=== PATIENT | male | born 1965 | race Caucasian/White ===

== ENCOUNTER 2018-12-06 22:15 | Emergency (ER) | payer OTHER ==
[2018-12-06] MEDS ORDERED: valACYclovir 500 MG Tab PO ONE (22:44)
[2018-12-06] MEDS ORDERED: predniSONE 20 MG Tab PO ONE (22:45)
--- NOTE | 2018-12-06 23:53 | EDM.PDOC ---
ED HPI GENERAL MEDICAL PROBLEM - General Chief Complaint: Neuro Symptoms/Deficits Stated Complaint: FACIAL DROOPING Time Seen by Provider: 12/06/18 22:28 Source of Information: Reports: Patient, Family History Limitations: Reports: No Limitations - History of Present Illness INITIAL COMMENTS - FREE TEXT/NARRATIVE: This is a 53-year-old male. Around 3:30 today when he was eating he noted some strange sensation in the left side of his cheek but didn't think too much of it. Apparently he went to a sports game and there was noted by his to have some left facial drooping. He was brought to the ER immediately for evaluation. He denies any weakness in his extremities and he seems to be talking fairly normal despite the slight drooping on the left side of his face. He denies any headache he denies any recent illnesses. There's been no nausea vomiting diarrhea no headaches. When he first arrived he did not appear to be in distress there was noted to be some left facial drooping and also noted that his left eye did not close completely and he was unable to wrinkle his forehead on the left side. Headache Pain Score (Numeric/FACES): 2 - Related Data Allergies Allergy/AdvReac Type Severity Reaction Status Date / Time No Known Allergies Allergy Verified 12/06/18 22:38 Home Meds: Home Meds predniSONE [Prednisone] 60 mg PO QAM #7 tablet 12/06/18 [Rx] valACYclovir [Valtrex] 1,000 mg PO TID #21 tablet 12/06/18 [Rx] ED ROS GENERAL - Review of Systems Review Of Systems: See Below Constitutional: Denies: Fever, Chills HEENT: Reports: Other (As per history of present illness) Respiratory: Reports: No Symptoms Cardiovascular: Reports: No Symptoms Endocrine: Reports: No Symptoms GI/Abdominal: Reports: No Symptoms : Reports: No Symptoms Musculoskeletal: Reports: No Symptoms Skin: Reports: No Symptoms Neurological: Reports: Other (As per history of present illness) Psychiatric: Reports: No Symptoms Hematologic/Lymphatic: Reports: No Symptoms ED EXAM, NEURO - Physical Exam Exam: See Below Exam Limited By: No Limitations General Appearance: Alert, WD/WN, No Apparent Distress Eye Exam: Bilateral Eye: Vision Changes (Denies any vision changes), Other (He is noted to have some left mild facial drooping, the left is also slightly drooping will not close completely and he is unable to wrinkle the left forehead ) Ears: Normal External Exam Nose: Normal Inspection Throat/Mouth: Normal Inspection, Normal Lips, Normal Voice, No Airway Compromise , Other (When he goes to show me his teeth there is obviously weakness on the left corner of the mouth) Head Exam: Normocephalic Neck: Supple. 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 Course - Vital Signs Last Recorded V/S: Last Vital Signs Temp 97.5 F 12/06/18 22:35 Pulse 72 12/06/18 22:35 Resp 18 12/06/18 22:35 BP 170/108 H 12/06/18 22:35 Pulse Ox 97 12/06/18 22:35 - Orders/Labs/Meds Orders: Active Orders 24 hr Category Date Time Status EKG 12 Lead [EKG Documentation Completion] [RC] STAT Care 12/06/18 22:45 Active Head wo Cont [CT] Stat Exams 12/06/18 22:29 Taken Labs: Laboratory Tests 12/06/18 12/06/18 Range/Units 22:35 22:35 WBC 6.00 (4.23-9.07) K/mm3 RBC 5.32 (4.63-6.08) M/mm3 Hgb 15.7 (13.7-17.5) gm/L Hct 45.7 (40.1-51.0) % MCV 85.9 (79.0-92.2) fl MCH 29.5 (25.7-32.2) pg MCHC 34.4 (32.2-35.5) g/dl RDW Std Deviation 40.9 (35.1-43.9) fL Plt Count 256 (163-337) K/mm3 MPV 9.4 (9.4-12.3) fl Neut % (Auto) 46.6 (34.0-67.9) % Lymph % (Auto) 39.8 (21.8-53.1) % [place] % (Auto) 10.8 (5.3-12.2) % Eos % (Auto) 2.3 (0.8-7.0) Baso % (Auto) 0.3 (0.1-1.2) % Neut # (Auto) 2.79 (1.78-5.38) K/mm3 Lymph # (Auto) 2.39 (1.32-3.57) K/mm3 [place] # (Auto) 0.65 (0.30-0.82) K/mm3 Eos # (Auto) 0.14 (0.04-0.54) K/mm3 Baso # (Auto) 0.02 (0.01-0.08) K/mm3 Sodium 140 (136-145) mEq/L Potassium 4.2 (3.5-5.1) mEq/L Chloride 101 (98-107) mEq/L Carbon Dioxide 26 (21-32) mEq/L Anion Gap 17.2 H (5-15) BUN 17 (7-18) mg/dL Creatinine 1.0 (0.7-1.3) mg/dL Est Cr Clr Drug Dosing 86.41 mL/min Estimated GFR (MDRD) > 60 (>60) mL/min BUN/Creatinine Ratio 17.0 (14-18) Glucose 88 (74-106) mg/dL Calcium 9.0 (8.5-10.1) mg/dL Total Bilirubin 1.2 H (0.2-1.0) mg/dL AST 34 (15-37) U/L ALT 39 (16-63) U/L Alkaline Phosphatase 56 (46-116) U/L Total Protein 8.2 (6.4-8.2) g/dl Albumin 4.2 (3.4-5.0) g/dl Globulin 4.0 gm/dL Albumin/Globulin Ratio 1.1 (1-2) Meds: Medications Discontinued Medications Generic Name Dose Route Start Last Admin Trade Name Chana SERRAN Reason Stop Dose Admin Prednisone 60 mg 12/06/18 22:45 12/06/18 22:55 Prednisone PO 12/06/18 22:46 60 mg ONETIME ONE Administration Valacyclovir HCl 1,000 mg 12/06/18 22:44 12/06/18 22:55 Valtrex PO 12/06/18 22:45 1,000 mg ONETIME ONE Administration - Radiology Interpretation Free Text/Narrative:: CT scan does not show any acute intracranial problems - Re-Assessments/Exams Free Text/Narrative Re-Assessment/Exam: 12/06/18 23:54 I did speak to Dr. Martinez in [place] regarding this gentleman with my conclusion is got a Reeves's palsy and this is not a CVA. He agrees with the physical assessment. I did look on up-to-date and he appears to have moderately severe dysfunction on the left side which according to up-to-date suggests that he needs to be on prednisone 60 mg a day for a week and valacyclovir thousand milligrams 3 times a day for a week. I spoke to the patient and his regarding these findings and these medications that he needs to be on. He is to follow-up with his family doctor this coming week for recheck. 12/07/18 00:02 Throat the family regarding the CBC and chemistry panel and the normality of the values. Departure - Departure Time of Disposition: 23:57 Disposition: Home, Self-Care 01 Condition: Fair Clinical Impression: Left-sided Reeves's palsy - Discharge Information *PRESCRIPTION DRUG MONITORING PROGRAM REVIEWED*: Not Applicable *COPY OF PRESCRIPTION DRUG MONITORING REPORT IN PATIENT RIGOBERTO: Not Applicable Prescriptions: predniSONE [Prednisone] 60 mg PO QAM #7 tablet valACYclovir [Valtrex] 1,000 mg PO TID #21 tablet Referrals: PCP,None [Primary Care Provider] - Additional Instructions: When you get the medications tomorrow take a single dose of prednisone and start the valacyclovir 3 times a day, you will need to follow up with your family doctor sometime next week for recheck, if there is worsening of your symptoms certainly come back to the ER for reevaluation, be certain that you use artificial tears and put several drops in your left eye before going to bed and then taped your eyelid closed and you must do this every night otherwise your cornea sometimes will dry out and develop an ulcer and then you'll have to get a corneal transplant, be aware that the inside of your mouth on the left can be numb so be careful about chewing and try to chew on the right side not the left side so you don't bite the inside of your mouth, return to the ER if needed - My Orders Last 24 Hours: My Active Orders 12/06/18 22:29 Head wo Cont [CT] Stat 12/06/18 22:45 EKG 12 Lead [EKG Documentation Completion] [RC] STAT - Assessment/Plan Last 24 Hours: My Active Orders 12/06/18 22:29 Head wo Cont [CT] Stat 12/06/18 22:45 EKG 12 Lead [EKG Documentation Completion] [RC] STAT
--- NOTE | 2018-12-07 15:19 | CT ---
Head CT Technique: Multiple axial sections through the brain were obtained. Intravenous contrast was not utilized. Comparison: No prior intracranial imaging. Findings: Ventricles along with basal cisterns and sulci over the convexities are within normal limits for the patient's age. No abnormal parenchymal densities are seen. No evidence of intracranial hemorrhage. No midline shift or mass effect is seen. Slight mucosal thickening is seen within the left sphenoid sinus and posterior left ethmoid sinus. No acute calvarial abnormality is seen. Impression: 1. Sinus finding felt to be incidental. 2. No acute intracranial abnormality is appreciated. Diagnostic code #2 I agree with preliminary report from [facility], finalized on 12/06/18, 11:35 PM Central Time
== END 2018-12-07 00:42 | disposition home or self-care (01) ==
LOC: JD.ED 22:15
DX: G51.0 Bell's palsy (principal)
CPT/HCPCS: 36415; 70450; 80053; 85025; 93005; 99285; A9270; 93010; 99284